=== PATIENT | female | born 1950 | race Caucasian/White ===

== ENCOUNTER 2018-08-07 00:46 | Outpatient (CLI) | payer MEDICARE, BC, SELFPAY ==
--- NOTE | 2018-08-07 15:00 | DI.DEXA_ITS ---
SYMPTOM/DIAGNOSIS: EARLY MENOPAUSE, E28.319, [facility] 'DEXA SCAN: Routine examination. No priors for comparison. Evaluation of the lateral spine shows no compression deformities. Evaluation of the lumbar spine shows a total T score of 0.7 and a Z score of 2.5. Evaluation of the left hip shows a total T score of 0.7 and a Z score of 2. These are within normal limits. No evidence of osteoporosis is seen. IMPRESSION: No evidence of osteoporosis.
--- NOTE | 2018-08-07 15:35 | DI.MAMMO_ITS ---
SYMPTOM/DIAGNOSIS: SCREENING, [facility], Z00.00 MAMMOGRAMS: Mammograms were interpreted according to the usual protocol including computer analysis with CAD system, tomosynthesis and C view imaging. Comparison is made with prior examinations. Breast density, Category B. No suspicious microcalcifications are seen. No suspicious masses are seen in the left breast. There is an ovoid asymmetric density which has shown some interval increase in size in the retroareolar region of the right breast, appreciated on the mediolateral oblique view. Spot compression view and ultrasound is requested for further evaluation. IMPRESSION: Additional views of the right breast as described above. Category 0. MQSA ASSESSMENT OF FINDINGS: Incomplete: Needs additional imaging evaluation. Category 0. Patient will receive a letter notifying them of these results. BI-RADS category B. There are scattered areas of fibroglandular density.
== END 2018-08-07 01:06 ==
PROVIDERS: PCP Family Medicine; Visit Provider Family Medicine
DX: Z12.31 Encounter for screening mammogram for malignant neoplasm of breast (principal); E28.319 Asymptomatic premature menopause; R92.8 Other abnormal and inconclusive findings on diagnostic imaging of breast; Z13.820 Encounter for screening for osteoporosis
CPT/HCPCS: 77063; 77067; 77080

== ENCOUNTER 2018-08-15 00:41 | Outpatient (CLI) | payer MEDICARE, BC, SELFPAY ==
--- NOTE | 2018-08-15 13:45 | DI.COMBO_ITS ---
SYMPTOM/DIAGNOSIS: F/U MAMMO, RT ASYMMETRIC DENSITY ADDITIONAL MAMMOGRAPHIC VIEWS RIGHT BREAST, RIGHT BREAST ULTRASOUND: 08/15/18 Additional mammographic views of the right breast and right breast ultrasound are interpretted in conjunction. These examinations were obtained to evaluate a question of retroareolar focal radio density seen on MLO view of recent mammogram. Additional mammographic views failed to show a definite mass. Breast ultrasound shows no evidence of a mass or cyst. Focal radiodensity persists on the MLO spot compression view. CONCLUSION: No specific evidence of malignancy at this time. Follow up unilateral right breast mammogram requested in 6 months. Category 3. Breast density Category B. MQSA ASSESSMENT OF FINDINGS: Probably benign. Six month follow-up recommended. Category 3. Patient will receive a letter notifying them of these results. BI-RADS category B. There are scattered areas of fibroglandular density.
== END 2018-08-15 01:01 ==
PROVIDERS: PCP Family Medicine; Visit Provider Family Medicine
DX: Z12.31 Encounter for screening mammogram for malignant neoplasm of breast (principal); R92.8 Other abnormal and inconclusive findings on diagnostic imaging of breast
CPT/HCPCS: 76642; 77063; 77067

== ENCOUNTER 2018-09-17 10:06 | Outpatient (REF) | payer MEDICARE, BC, SELFPAY ==
[2018-09-17 12:22] LABS: Anion Gap 9.1 mmol/L (3-11); BUN 10 mg/dL (7-18); CO2 26.9 mmol/L (21.0-32.0); CREATININE 0.83 mg/dL (0.55-1.02); Calcium 9.3 mg/dL (8.5-10.1); Chloride 102 mmol/L (98-107); Glucose 137 mg/dL (70-100); Potassium 4.3 mmol/L (3.5-5.1); Sodium 138 mmol/L (136-145)
== END 2018-09-17 10:26 ==
LOC: NCHCN 10:06
PROVIDERS: PCP Family Medicine; Visit Provider Family Medicine
DX: I10 Essential (primary) hypertension (principal)
CPT/HCPCS: 80048

== ENCOUNTER 2018-10-17 09:14 | Outpatient (REF) | payer MEDICARE, BC, SELFPAY ==
[2018-10-17 12:10] LABS: BUN 8 mg/dL (7-18); CREATININE 0.96 mg/dL (0.55-1.02); Calcium 9.2 mg/dL (8.5-10.1); Chloride 102 mmol/L (98-107); Estimated GFR 58.15 (mL/min/1.73m2); Glucose 202 mg/dL (70-100); Potassium 4.2 mmol/L (3.5-5.1); Sodium 138 mmol/L (136-145)
== END 2018-10-17 09:34 ==
LOC: NCHCN 09:14
PROVIDERS: PCP Family Medicine; Visit Provider Family Medicine
DX: I10 Essential (primary) hypertension (principal)
CPT/HCPCS: 80048

== ENCOUNTER 2019-03-25 10:07 | Outpatient (REF) | payer MEDICARE, BC, SELFPAY ==
[2019-03-25 19:43] LABS: HCT 37.4 % (36.0-46.0); HGB 12.1 g/dL (12.0-15.5); Mean Corp. HGB Concentration 32.4 g/dL (32.0-36.0); Mean Corpuscular Hemoglobin 30.5 pg (27.0-33.0); Mean Corpuscular Volume 94.2 fL (80-95); Mean Platelet Volume 10.4 fL (8.0-11.0); Platelet Count 232 x1000/uL (130-400); RBC 3.97 m/cumm (4.00-5.20); RBC Distribution Width 13.1 % (11.7-14.6); White Blood Cell Count 5.79 k/cumm (4.4-10.8)
[2019-03-25 20:13] LABS: COMMENT (LAB VIEW ONLY) 175.06 mg/dL; Microalb ug/mg Crea 6.6 ug/mg Cr
[2019-03-25 20:34] LABS: Anion Gap 12.9 mmol/L (3-11); BUN 10 mg/dL (7-18); CO2 25.1 mmol/L (21.0-32.0); CREATININE 0.86 mg/dL (0.55-1.02); Chloride 102 mmol/L (98-107); Glucose 157 mg/dL (70-100); Potassium 4.2 mmol/L (3.5-5.1); Sodium 140 mmol/L (136-145); TSH (W/Ref FT4) 1.63 uIU/mL (0.358-3.74)
== END 2019-03-25 10:27 ==
LOC: NCHCN 10:07
PROVIDERS: PCP Family Medicine; Visit Provider Family Medicine
DX: E11.9 Type 2 diabetes mellitus without complications (principal)
CPT/HCPCS: 80048; 85027; 82043; 82570; 84443

== ENCOUNTER 2019-07-22 19:32 | Outpatient (REF) | payer MEDICARE, BC, SELFPAY ==
[2019-07-22 19:16] LABS: Anion Gap 11.1 mmol/L (3-11); BUN 10 mg/dL (7-18); CO2 25.9 mmol/L (21.0-32.0); Calcium 9.6 mg/dL (8.5-10.1); Chloride 99 mmol/L (98-107); Glucose 336 mg/dL (70-100); Potassium 4.1 mmol/L (3.5-5.1); Sodium 136 mmol/L (136-145)
== END 2019-07-22 19:52 ==
LOC: NCHCN 19:32
PROVIDERS: PCP Family Medicine; Visit Provider Family Medicine
DX: I10 Essential (primary) hypertension (principal)
CPT/HCPCS: 80048

== ENCOUNTER 2019-08-09 04:27 | Outpatient (CLI) | payer MEDICARE, BC, SELFPAY ==
--- NOTE | 2019-08-09 09:00 | DI.MAMMO_ITS ---
EXAM: MG MAMMO SCREENING MG MAMMO SCREENING CLINICAL HISTORY: SCREENING, Z12.31 SCREENING, Z12.31 TECHNIQUE: Mammograms were interpreted according to the usual protocol including computer analysis w [employer] CAD system, tomosynthesis and C-view imaging. COMPARISON: 2009 through 2018. FINDINGS: The breasts are composed of mainly fatty density , Breast Density category A. No suspicious masses or suspicious microcalcifications are seen. No skin thickening or abnormal axillary lymph nodes are seen. Noted are scattered nodular densities . There has been no significant change from prior exams. IMPRESSION: BIRADS Category 2, negative mammogram with benign findings. Yearly screening mammography is recommen ded. Breast density category A.
== END 2019-08-09 04:47 ==
PROVIDERS: PCP Family Medicine; Visit Provider Family Medicine
DX: Z12.31 Encounter for screening mammogram for malignant neoplasm of breast (principal)
CPT/HCPCS: 77063; 77067

== ENCOUNTER 2019-10-11 12:58 | Outpatient (REF) | payer MEDICARE, BC, SELFPAY ==
[2019-10-11 13:35] LABS: Anion Gap 11.5 mmol/L (3-11); BUN 20 mg/dL (7-18); CO2 25.5 mmol/L (21.0-32.0); CREATININE 0.92 mg/dL (0.55-1.02); Calcium 9.7 mg/dL (8.5-10.1); Chloride 103 mmol/L (98-107); Glucose 119 mg/dL (74-106); Potassium 3.9 mmol/L (3.5-5.1); Sodium 140 mmol/L (136-145)
[2019-10-11 13:59] LABS: Hemoglobin A1C 6.7 % (3.8-5.6)
== END 2019-10-11 13:18 ==
LOC: NCHCN 12:58
PROVIDERS: PCP Family Medicine; Visit Provider Family Medicine
DX: E11.9 Type 2 diabetes mellitus without complications (principal); I10 Essential (primary) hypertension
CPT/HCPCS: 80048; 83036

== ENCOUNTER 2020-09-16 00:36 | Outpatient (CLI) | payer MEDICARE, BC, SELFPAY ==
--- NOTE | 2020-09-16 | DI.MAMMO_ITS ---
EXAM: MG MAMMO SCREENING CLINICAL HISTORY: SCREENING, Z12.31. TECHNIQUE: Bilateral full field digital CC and MLO mammographic images were obtained with 3D tomosyn thesis and utilizing computer aided detection (CAD). COMPARISON: Prior mammograms dating back to 2011, the most recent being August 2019. Family histo ry; mother diagnosed with postmenopausal breast cancer. FINDINGS: Benign-appearing nodular densities in both breasts remain unchanged. There are no new spiculated masses nor malignant appearing microcalcification groups. There is no si gnificant architectural distortion nor skin thickening-retraction. IMPRESSION: No radiographic evidence of malignancy. Stable benign findings BI-RADS Category 2 - Benign Findings Breast Density - Category A - Almost entirely fatty Breast density Category C or D implies that the patient has dense breast tissue. Dense breast tissue can make it harder to find cancer on a mammogram. Dense breast tissue is also associated with an incr eased risk of breast cancer. This information about the result of the mammogram report was provided to the patient to raise their awareness. Use this report when you speak with the patient about their risks for breast cancer, which includes their family history. At that time, you may recommend additional screening tests (Ultrasoun d or MRI) as these tests may add significant information. A negative radiographic report should not delay biopsy if a dominant or clinically suspicious mass is present. Up to ten percent of cancers are not identified on mammography. A negative report may reinforce clinical impression. Adenosis and dense breasts may obscure an underlying neoplasm. False positive reports average 6 to 10%. Patient will receive a letter notifying them of these results.
== END 2020-09-16 00:56 ==
PROVIDERS: PCP Family Medicine; Visit Provider Family Medicine
DX: Z12.31 Encounter for screening mammogram for malignant neoplasm of breast (principal)
CPT/HCPCS: 77063; 77067

== ENCOUNTER 2020-09-17 20:36 | Outpatient (REF) | payer MEDICARE, BC, SELFPAY ==
[2020-09-17 13:37] LABS: HCT 32.8 % (36.0-46.0); HGB 10.8 g/dL (11.2-15.7); MCH 30.8 pg (27.0-33.0); MCHC 32.9 % (32.0-36.0); MCV 93.4 fL (80-95); MPV 9.6 fL (8.0-11.0); Platelet Count 194 10^3/uL (130-400); RBC 3.51 10^6/uL (3.93-5.22); RDW 12.5 % (11.7-14.6); RDW-SD 42.8 fL
[2020-09-17 14:03] LABS: ALT 50 U/L (14-59); AST 29 U/L (15-37); Albumin 3.7 g/dL (3.4-5.0); Alkaline Phosphatase 120 U/L (46-116); Anion Gap 7.3 mmol/L (3-11); BUN 17 mg/dL (7-18); Bilirubin, Total 0.4 mg/dL (0.2-1.0); CO2 27.7 mmol/L (21.0-32.0); CREATININE 1.02 mg/dL (0.55-1.02); Calcium 9.1 mg/dL (8.5-10.1); Chloride 102 mmol/L (98-107); Estimated GFR 53.89 (mL/min/1.73m2); Glucose 128 mg/dL (74-106); Sodium 137 mmol/L (136-145); TSH (W/Ref FT4) 0.98 uIU/mL (0.36-3.74); Total Protein 6.8 g/dL (6.4-8.2)
[2020-09-17 15:00] LABS: COMMENT (LAB VIEW ONLY) 76.05 mg/dL
[2020-09-18 13:31] LABS: Ferritin 63 ng/mL (8-252)
[2020-09-18 13:49] LABS: Iron 65 ug/dL (50-170); Total Iron Binding Capacity 335 ug/dL (250-450); Transferrin Sat 19 % (15-50)
[2020-09-18 22:29] LABS: Vitamin B12 495 pg/mL (211-911)
[2020-09-21 10:09] LABS: Folate 22.5 ng/mL (See Note)
== END 2020-09-17 20:56 ==
LOC: NCHCN 20:36
PROVIDERS: PCP Family Medicine; Visit Provider Family Medicine
DX: D64.9 Anemia, unspecified (principal); I10 Essential (primary) hypertension; E03.9 Hypothyroidism, unspecified; E78.5 Hyperlipidemia, unspecified
CPT/HCPCS: 80053; 85027; 82043; 82570; 82607; 82728; 82746; 83540; 83550; 84443

== ENCOUNTER 2020-09-24 00:36 | Outpatient (CLI) | payer MEDICARE, BC, SELFPAY ==
--- NOTE | 2020-09-24 | DI.US_ITS ---
APPROVED REPORT EXAM: Comprehensive 2D, Doppler, and color-flow Echocardiogram Patient Location: Out-Patient In Flight Refueling Craftsman: Zhane Esparza RDCS (AE) Indications: Murmur Other Information Study Quality: Adequate Conclusion Left Ventricle : The left ventricle is normal size. The left ventricular systolic function is normal. The left ventricular ejection fraction is within the normal range. There is normal left ventricular wall thickness. There is normal LV segmental wall motion. The left ventricular diastolic function is normal. LVEF is 57%. Right Ventricle : The right ventricle is normal size. The right ventricular systolic function is norm al. Atria : The left atrium size is normal. The right atrium size is normal. Valves: There are no hemodynamically significant valvular lesions. Great Vessels : The aortic root is normal in size. The ascending aorta is dilated (3.6cm). Aortic arc h is normal in caliber. IVC is normal in size and collapses >50% with inspiration. Please see remainder of study for further details. Wall motion Left Ventricle The left ventricle is normal size. The left ventricular systolic function is normal. The left ventric ular ejection fraction is within the normal range. There is normal left ventricular wall thickness. T here is normal LV segmental wall motion. The left ventricular diastolic function is normal. There is no ventricular septal defect visualized. LVEF is 57%. Right Ventricle The right ventricle is normal size. The right ventricular systolic function is normal. Atria The left atrium size is normal. The right atrium size is normal. The interatrial septum is intact wit h no evidence for an atrial septal defect. Aortic Valve The Aortic valve is sclerotic. Aortic valve is trileaflet. No hemodynamically significant valvular ao rtic stenosis. No aortic regurgitation is present. Mitral Valve The mitral valve is normal in structure. No evidence of mitral valve stenosis. Trace mitral regurgita tion. Tricuspid Valve The tricuspid valve is normal in structure. There is no tricuspid valve stenosis. Trace tricuspid reg urgitation. Unable to assess PA pressure. Pulmonic Valve The pulmonary valve is normal in structure. There is no pulmonic valvular stenosis. Trace pulmonic re gurgitation. Great Vessels The aortic root is normal in size. The ascending aorta is dilated (3.6cm). Aortic arch is normal in c aliber. IVC is normal in size and collapses >50% with inspiration. Pericardium There is no pericardial effusion. 2D Dimensions IVSD d PLAX 0.95 cm F: 0.6-1.0 LV Vol A2C d MOD 114.1 mL LVPW d PLAX 0.91 cm F: 0.6 - 1.0 LV Vol A4C d MOD 127.6 mL LVID d PLAX 5.05 cm F: 3.8 - 5.2 LA vol/ BSA A2C s A-L 16.7 mL/m2 LVDs 3.35 cm F: 2.2 - 3.5 LA vol/ BSA A4C s A-L 21.3 mL/m2 Ao Root d 3.05 cm F: 2.7 - 3.3 LA Vol/ BSA Biplane s A-L 19.9 mL/m2 RA Area A4C 16.72 cm2 LA Area A4C s MOD 16.73 cm2 RA Vol/ BSA A4C s A-L 23.0 mL/m2 LA Area A2C s MOD 14.01 cm2 Ao Asc Diam d 3.61 cm F: 2.3 - 3.1 LV EF A4C MOD 56.2 % LV EF Teichholz 61.8 % LV EF A2C MOD 56.8 % LVEF (Coleman's) 56.47 % F: 54 - 74 LV EF Biplane MOD 56.5 % LV Volume 89.58 mL F: 46 - 106 SV 68.08 mL LV Volume Index 43.69 mL/m2 F: 29 - 61 SV Index 33.10 mL/m2 LV Vol Biplane MOD 120.5 mL FS 33.35 % M-Mode TAPSE 2.05 cm (M/F) >1.7 LV Diastology MV E' medial 0.093 (>0.07 m/s) E/A Ratio 1.0 LV E/e MED 8.90 (<14) MV E Vmax 0.83 (0.4-1.3 m/s) MV E' lateral 0.086 (>0.1 m/s) MV A Vmax 0.80 (0.4-1.3 m/s) LV E/e LAT 9.65 (<14) MV E/A Ratio 1.03 MV E/E' medial 8.90 MV E/E' lateral 9.67 Aortic Valve LVOT Area 3.70 cm2 AoV Area Vmax 1.81 cm2 LVOT Vmax 1.02 m/s AoV Area/ BSA (Vmax) 0.88 cm2/m2 LVOT Mean Connor. 0.68 m/s HEBER Mean Connor. 1.68 cm2 LVOT Peak Grad 4.1 mmHg HEBER Mean Connor. Index 0.82 cm2/m2 LVOT Mean Grad 2.2 mmHg LVOT VTI 0.251 m LVOT Diam s 2.15 cm AoV Vmax 2.07 m/s Velocity Ratio 0.49 AoV Mean Connor. 1.51 m/s AoV Peak Grad 17.2 mmHg LVOT SV 92.86 mL AoV Mean Grad 10.0 mmHg AoV VTI 0.450 m AoV Area VTI 2.06 cm2 AoV Area/ BSA (VTI) 1.00 cm/m2 Mitral Valve MV DT 218 (160-240 msec) MV PHT 63 msec MV Area PHT 3.48 cm2 MV VTI 0.258 m MV Area VTI 3.59 (4.0-6.0 cm2) Pulmonary Valve PV Vmax 1.06 (0.5-1.5 m/s) RVOT Peak Gr. 1.71 mmHg PV Peak Grad 4.5 mmHg RVOT Mean Gr. 0.95 mmHg PV Mean Grad 2.2 mmHg RVOT VTI 0.156 m PV VTI 0.211 m RVOT Vmax 0.65 m/s
== END 2020-09-24 00:56 ==
PROVIDERS: PCP Family Medicine; Visit Provider Family Medicine
DX: R01.1 Cardiac murmur, unspecified (principal); I77.810 Thoracic aortic ectasia
CPT/HCPCS: 93306

== ENCOUNTER 2021-01-01 09:25 | Outpatient (REF) | payer MEDICARE, BC, SELFPAY ==
[2021-01-01 15:42] LABS: HCT 35.1 % (36.0-46.0); HGB 11.5 g/dL (11.2-15.7); MCH 30.7 pg (27.0-33.0); MCHC 32.8 % (32.0-36.0); MCV 93.9 fL (80-95); MPV 9.9 fL (8.0-11.0); Platelet Count 225 10^3/uL (130-400); RBC 3.74 10^6/uL (3.93-5.22); RDW 12.8 % (11.7-14.6); WBC 6.49 10^3/uL (4.4-10.8)
[2021-01-01 16:19] LABS: Anion Gap 9.3 mmol/L (3-11); BUN 15 mg/dL (7-18); CO2 26.7 mmol/L (21.0-32.0); CREATININE 1.2 mg/dL (0.55-1.02); Calcium 9.2 mg/dL (8.5-10.1); Chloride 103 mmol/L (98-107); Estimated GFR 44.54 (mL/min/1.73m2); Ferritin 73 ng/mL (8-252); Glucose 193 mg/dL (74-106); Potassium 3.9 mmol/L (3.5-5.1); Sodium 139 mmol/L (136-145); Vitamin B12 493 pg/mL (193-986)
[2021-01-05 09:41] LABS: Methylmalonic Acid 0.17 nmol/mL (<=0.40)
== END 2021-01-01 09:26 | disposition home or self-care (01) ==
LOC: NCHCN 09:25
PROVIDERS: PCP Family Medicine; Visit Provider Family Medicine
DX: D64.9 Anemia, unspecified (principal); Z79.899 Other long term (current) drug therapy; I10 Essential (primary) hypertension
CPT/HCPCS: 80048; 80186; 85027; 82607; 82728

== ENCOUNTER 2021-06-10 19:15 | Outpatient (REF) | payer MEDICARE, BC, SELFPAY ==
[2021-06-10 17:15] LABS: HCT 36.2 % (36.0-46.0); HGB 11.6 g/dL (11.2-15.7); MCV 93.5 fL (80-95); MPV 9.9 fL (8.0-11.0); Platelet Count 228 10^3/uL (130-400); RBC 3.87 10^6/uL (3.93-5.22); RDW 13.2 % (11.7-14.6); RDW-SD 45.3 fL; WBC 5.65 10^3/uL (4.4-10.8)
[2021-06-10 17:28] LABS: Anion Gap 9.5 mmol/L (3-11); BUN 15 mg/dL (7-18); CO2 26.5 mmol/L (21.0-32.0); CREATININE 1.2 mg/dL (0.55-1.02); Calcium 9.5 mg/dL (8.5-10.1); Chloride 100 mmol/L (98-107); Estimated GFR 44.54 (mL/min/1.73m2); Ferritin 85 ng/mL (8-252); Glucose 170 mg/dL (74-106); Potassium 4.2 mmol/L (3.5-5.1); Sodium 136 mmol/L (136-145); TSH (W/Ref FT4) 1.98 uIU/mL (0.36-3.74)
[2021-06-10 17:36] LABS: Hemoglobin A1C 7.7 % (<5.7)
== END 2021-06-10 19:16 | disposition home or self-care (01) ==
LOC: NCHCN 19:15
PROVIDERS: PCP Family Medicine; Visit Provider Family Medicine
DX: E11.9 Type 2 diabetes mellitus without complications (principal); D64.9 Anemia, unspecified; I10 Essential (primary) hypertension; E03.9 Hypothyroidism, unspecified
CPT/HCPCS: 80048; 85027; 82728; 83036; 84443

== ENCOUNTER 2021-08-19 07:13 | Emergency (ER) | payer MEDICARE, BC, SELFPAY ==
--- NOTE | 2021-08-19 07:19 | ED.GENADUL_ITS ---
Discharge Plan Disposition Patient Disposition: HOME Condition: Good Discharge Details Clinical Impression: Acute UTI Primary Care Provider: Soraida Spencer ED Provider: Scottie Ozuna Home Meds and New Rx's Prescriptions: New cephalexin 500 mg capsule 500 mg PO QID 7 Days Qty: 28 RF: 0 Continued aspirin 81 MG tablet,chewable 81 mg PO DAILY RF: 0 levothyroxine [Tirosint] 25 MCG capsule 88 mcg PO DAILY RF: 0 acetaminophen [Tylenol] 325 MG tablet 325 mg PO PRN PRNRF: 0 atorvastatin 40 mg tablet 40 mg PO DAILY RF: 0 chlorthalidone 25 mg tablet 50 mg PO DAILY RF: 0 losartan 100 mg tablet 100 mg PO DAILY RF: 0 metformin 500 mg tablet extended release 24 hr 1,000 mg PO BID RF: 0 omega 2-wqf-wbk-fish oil [Fish Oil] 300-1,000 mg Capsule,Delayed Release(Dr/Ec) 1 cap PO DAILY RF: 0 Jardiance 10 mg tablet 10 mg PO DAILY RF: 0 ibuprofen 400 MG tablet 400 mg PO PRN PRNRF: 0 Discharge Instructions Instructions: Urinary Tract Infection in Women (ED) Additional Instructions: At this time you have evidence of a urinary tract infection. Please take the antibiotic as directed. It has been sent to your pharmacy on file. Please take cranberry concentrate or the cranberry pill supplement that we discussed. If you notice any worsening of your symptoms, or any new symptoms such as vomiting, diarrhea, fever, chills, shortness of breath, chest pain, numbness, weakness, or fainting , please return immediately to the emergency department for reevaluation. Please follow up with your primary care provider as soon as possible for reassessment and reevaluation. As always, it was a pleasure participating in your medical care today. Referrals: Soraida Spencer MD [Primary Care Provider] - Medical Decision Making 70-year-old female with a past medical history of thyroid disease, high cholesterol, diabetes, presents today for urinary frequency and burning for the last week, worsened over the last 24 hours. She denies any fever or chills. She denies any significant abdominal pain, but does admit to some mild groin cramping. She denies any history of kidney stones. Patient does admit to having her Covid booster 1.5 weeks ago and this did cause some diarrhea, myalgias, and other pain but has since resolved. Patient denies any other complaints at this time. She has had a urinary tract infection in the past which felt similar to this. No other modifying factors. She has not been taking any cranberry concentrate. Past surgical history is positive for appende ctomy Physical exam demonstrates no abdominal tenderness, no flank or CVA tenderness. No fever. Symptoms are consistent with mild UTI. Will get urinalysis for further assessment. No indication for CT imaging at this time or blood work. 8:16 AM Urinalysis evidence of UTI. Will give Keflex for treatment. Discussed red flags which to return. No evidence of pyelonephritis. I have extensively reviewed the treatment plan and discharge instructions with the patient. I have addressed all patient concerns at this time. The patient was made aware of what symptoms to monitor for that would warrant a return to the emergency department. Discussed the plan with the patient, they demonstrate verbal understanding and agreement with our assessment and plan at this time. The documentation in this chart was dictated using [employer] dictation software. Please excuse any dictation errors. HPI General Date/Time Provider Initiated Documentation: 08/19/21 07:15 . HPI Narrative: 70-year-old female with a past medical history of thyroid disease, high cholesterol, diabetes, presents today for urinary frequency and burning for the last week, worsened over the last 24 hours. She denies any fever or chills. She denies any significant abdominal pain, but does admit to some mild groin cramping. She denies any history of kidney stones. Patient does admit to having her Covid booster 1.5 weeks ago and this did cause some diarrhea, myalgias, and other pain but has since resolved. Patient denies any other complaints at this time. She has had a urinary tract infection in the past which felt similar to this. No other modifying factors. She has not been taking any cranberry concentrate. Related Data Home Medications Medication Instructions Recorded Confirmed levothyroxine [Tirosint] 88 mcg PO DAILY 03/05/13 08/19/21 ibuprofen 400 mg PO PRN PRN 10/31/16 08/19/21 acetaminophen [Tylenol] 325 mg PO PRN PRN 11/03/16 08/19/21 aspirin 81 mg PO DAILY tab-cap 03/13/17 08/19/21 Jardiance 10 mg PO DAILY 08/19/21 08/19/21 atorvastatin 40 mg PO DAILY 08/19/21 08/19/21 cephalexin 500 mg PO QID 7 Days #28 cap 08/19/21 chlorthalidone 50 mg PO DAILY 08/19/21 08/19/21 losartan 100 mg PO DAILY 08/19/21 08/19/21 metformin 1,000 mg PO BID 08/19/21 08/19/21 omega 0-jkv-zjl-fish oil [Fish Oil] 1 cap PO DAILY 08/19/21 08/19/21 Previous Rx's Medication Instructions Recorded cephalexin 500 mg PO QID 7 Days #28 cap 08/19/21 Allergies Allergy/AdvReac Type Severity Reaction Status Date / Time citalopram AdvReac Mild ankles Unverified 08/19/21 07:31 swelled Review of Systems All systems reviewed & are unremarkable except as noted in HPI and below PFSH Active Problem List Appendicitis (Active 03/05/13) Carpal tunnel syndrome on both sides (Acute) Medical History Depression Hypothyroid Surgical History Appendectomy Colonoscopy - IV Sedation (04/05/17) Social History Smoking/Tobacco Use Status: Former Tobacco Use Smoking risk assessment performed?: Yes Drug use: Never Do you feel safe in your relationship?: Yes Exam Narrative Exam Narrative: 1.Const: Well-nourished, Well-developed, appearing stated age 2.Eyes: PERRL, no conjunctival injection, and symmetrical lids. 3.ENT: Atraumatic external nose and ears. Moist MM. Neck: Symmetric, trachea midline, No thyromegaly. 4.CVS: +S1/S2, No murmurs or gallops. Peripheral pulses 2+ and equal in all extremities. Brisk capillary refill in all extremities. 5.RESP: Unlabored respiratory effort. Clear to auscultation bilaterally. No wheezes rales or rhonchi 6.GI: Soft, Nontender/Nondistended, No hepatosplenomegaly. No guarding or rebound. No flank or CVA tenderness. No pain at McBurney's point. Negative Evans sign. 7.MSK: Normocephalic/Atraumatic, Extremities w/o deformity or ttp No cyanosis or clubbing, Normal movement of all extremities 8.Skin: Warm, Dry. No rashes or lesions. 9.Neuro: service delivery management consultant II-XII grossly intact. Sensation grossly intact, no focal neurologic deficits. 10.Psych: (AAO) x3. Appropriate mood and affect
[2021-08-19 07:26] VITALS: BP 154/72; PULSE 100; RESP 16; TEMP 36.3; O2SAT 100
[2021-08-19 08:04] LABS: Bilirubin Negative (Negative); Blood Large (Negative); Clarity Cloudy (Clear); Glucose Negative (Negative); Ketones Negative (Negative); Leukocyte Esterase Large (Negative); Nitrite Negative (Negative); Specific Gravity 1.025 (1.005-1.025); Urobilinogen 0.2 EU/dL (Up TO 0.2)
[2021-08-19 08:10] LABS: Bacteria Few HPF (Negative); C & S Indicated? Yes; Casts 0-2 Hyaline LPF (Negative); Crystals Negative HPF (Negative); Epithelial Cells Few HPF (Negative); Mucus Negative (Negative); RBC >50 HPF (0-2); WBC >50 HPF (0-5)
[2021-08-19] MEDS: Cephalexin 500 MG CAP PO (08:22)
== END 2021-08-19 08:25 | disposition home or self-care (01) ==
PROVIDERS: Emergency Provider Student in an Organized Health Care Education/Training Program; PCP Family Medicine
DX: N39.0 Urinary tract infection, site not specified (principal)
CPT/HCPCS: 87077; 99283; 81003; 81015; 87086; 87186

== ENCOUNTER 2021-08-25 02:00 | Outpatient (CLI) | payer MEDICARE, BC, SELFPAY ==
--- NOTE | 2021-08-25 09:15 | DI.US_ITS ---
Exam(s) US RENAL EXAM: US RENAL CLINICAL HISTORY: CHRONIC KIDNEY DISEASE N18.31 TECHNIQUE: Ultrasound performed using standard protocol. COMPARISON: US US ECHOCARDIOGRAM from 09/24/2020 FINDINGS: Renal ultrasound was performed according to usual protocol. There is no evidence of hydronephrosis o r nephrolithiasis. There is a simple cyst of the upper pole of the left kidney measuring 28 millimet ers in diameter. No other mass identified. The renal cortex appears well preserved bilaterally. Urinary bladder is unremarkable in appearance with pre and post void volume measurements 82 cc and 0 cc respectively. Ureteral jets were nonvisualized. IMPRESSION: Negative renal ultrasound DATA REPOSITORY:
== END 2021-08-25 02:20 ==
PROVIDERS: PCP Family Medicine; Visit Provider Family Medicine
DX: N18.31 Chronic kidney disease, stage 3a (principal)
CPT/HCPCS: 76770

== ENCOUNTER 2021-09-17 02:07 | Outpatient (CLI) | payer MEDICARE, BC, SELFPAY ==
--- NOTE | 2021-09-17 09:18 | DI.MAMMO_ITS ---
Exam(s) MAMMO SCREENING EXAM: MAMMO SCREENING CLINICAL HISTORY: SCREENING, Z12.31 TECHNIQUE: Bilateral full field digital CC and MLO mammographic images were obtained with 3D tomosyn thesis and utilizing computer aided detection (CAD). COMPARISON: Available for comparison. FINDINGS: Masses/Architectural Distortion: Stable bilateral breast nodules. No suspicious nodules areas of arc hitectural distortion. Microcalcifications: No suspicious pleomorphic-type are seen. Skin Thickening/Nipple Retraction: None. IMPRESSION: 1. No significant interval change with no specific features of malignancy noted. 2. Unless there is more urgent need, screening mammography is recommended, as per [employer] guidelines. BI-RADS Category 2 - Benign Findings Breast Density - Category A - Almost entirely fatty Breast density category C or D implies that the patient has dense breast tissue. Dense breast tissue is very common and is not abnormal but dense breast tissue can make it harder to find cancer on a ma mmogram. Also, dense breast tissue may increase their breast cancer risk. This information about the result of the mammogram report was provided to the patient to raise their awareness. Use this report when you speak with the patient about their risks for breast cancer, which includes their family hist ory. At that time, you may recommend for more screening tests (Ultrasound or MRI) as they might be us eful based on their risk. A negative radiographic report should not delay biopsy if a dominant or clinically suspicious mass is present. Up to ten percent of cancers are not identified on mammography. A negative report may reinforce clinical impression. Adenosis and dense breasts may obscure an underlying neoplasm. False positive reports average 6 to 10%. Patient will receive a letter notifying them of these results.
== END 2021-09-17 02:27 ==
PROVIDERS: PCP Family Medicine; Visit Provider Family Medicine
DX: Z12.31 Encounter for screening mammogram for malignant neoplasm of breast (principal)
CPT/HCPCS: 77063; 77067

== ENCOUNTER 2022-02-25 19:13 | Outpatient (REF) | payer MEDICARE, BC, SELFPAY ==
[2022-02-25 15:35] LABS: HCT 34.2 % (36.0-46.0); HGB 11.4 g/dL (11.2-15.7); MCH 31.4 pg (27.0-33.0); MCHC 33.3 % (32.0-36.0); MCV 94 fL (80-95); MPV 9.3 fL (8.0-11.0); Platelet Count 257 10^3/uL (130-400); RBC 3.63 10^6/uL (3.93-5.22); RDW 12.5 % (11.7-14.6); RDW-SD 43.3 fL; WBC 5.63 10^3/uL (4.4-10.8)
[2022-02-25 15:50] LABS: Hemoglobin A1C 5.6 % (<5.7)
[2022-02-25 15:52] LABS: Iron 85 ug/dL (50-170); Total Iron Binding Capacity 343 ug/dL (250-450); Transferrin Sat 25 % (15-50)
[2022-02-25 16:09] LABS: Anion Gap 8.4 mmol/L (3-11); BUN 19 mg/dL (7-18); CO2 27.6 mmol/L (21.0-32.0); CREATININE 1.1 mg/dL (0.55-1.02); Calcium 9.5 mg/dL (8.5-10.1); Calculated LDL 67 mg/dL (<100); Chloride 103 mmol/L (98-107); Cholesterol 157 mg/dL (<200); Ferritin 53 ng/mL (8-252); Glucose 128 mg/dL (74-106); HDL Cholesterol 59 mg/dL (40-60); Potassium 4.5 mmol/L (3.5-5.1); Sodium 139 mmol/L (136-145); TSH (W/Ref FT4) 0.74 uIU/mL (0.36-3.74); Triglyceride 158 mg/dL (<150)
[2022-02-25 16:30] LABS: COMMENT (LAB VIEW ONLY) 37.28 mg/dL
[2022-02-28 05:06] LABS: Vitamin D 25 Total 16.4 ng/mL (30-100)
[2022-02-28 09:59] LABS: Parathyroid Hormone,Intact 55 pg/mL (19-88)
== END 2022-02-25 19:14 | disposition home or self-care (01) ==
LOC: NCHCN 19:13
PROVIDERS: PCP Family Medicine; Visit Provider Family Medicine
DX: E11.9 Type 2 diabetes mellitus without complications (principal); N18.31 Chronic kidney disease, stage 3a; D64.9 Anemia, unspecified; E78.5 Hyperlipidemia, unspecified; E03.9 Hypothyroidism, unspecified; E55.9 Vitamin D deficiency, unspecified
CPT/HCPCS: 80048; 80061; 82306; 85027; 82043; 82570; 82728; 83036; 83540; 83550; 83970; 84443

== ENCOUNTER 2022-07-04 14:13 | Outpatient (REF) | payer MEDICARE, BC, SELFPAY ==
[2022-07-04 16:40] LABS: Vitamin D 25 Total 48.6 ng/mL (30-100)
== END 2022-07-04 14:14 | disposition home or self-care (01) ==
LOC: NCHCN 14:13
PROVIDERS: PCP Family Medicine; Visit Provider Family Medicine
DX: E55.9 Vitamin D deficiency, unspecified (principal)
CPT/HCPCS: 82306

== ENCOUNTER 2022-09-07 15:05 | Outpatient (REF) | payer MEDICARE, BC, SELFPAY | END 2022-09-07 15:06 | disposition home or self-care (01) | LOC: NCHCN 15:05 | PROVIDERS: PCP Family Medicine; Visit Provider Family Medicine | DX: E11.9 Type 2 diabetes mellitus without complications (principal) | CPT/HCPCS: 82043; 82570 ==

== ENCOUNTER 2022-10-18 02:20 | Outpatient (CLI) | payer MEDICARE, BC, SELFPAY ==
--- NOTE | 2022-10-18 08:25 | DI.MAMMO_ITS ---
Exam(s) MAMMO SCREENING EXAM: MAMMO SCREENING CLINICAL HISTORY: SCREENING MAMMO FOR BREAST CANCER Z12.31. TECHNIQUE: Bilateral full field digital CC and MLO mammographic images were obtained with 3D tomosyn thesis and utilizing computer aided detection (CAD). COMPARISON: Prior mammograms were reviewed. FINDINGS: There has been no significant change in the appearance and distribution of the fibroglandular tissue. Multiple small benign-appearing nodular densities in both breasts are unchanged. There are no new spiculated masses nor malignant appearing microcalcification groups. There is no significant architectural distortion nor skin thickening-retraction. IMPRESSION: No radiographic evidence of malignancy. Stable benign-appearing findings. BI-RADS Category 2 - Benign Findings Breast Density - Category B - Scattered areas of fibroglandular density Breast density Category C or D implies that the patient has dense breast tissue. Dense breast tissue can make it harder to find cancer on a mammogram. Dense breast tissue is also associated with an incr eased risk of breast cancer. This information about the result of the mammogram report was provided to the patient to raise their awareness. Use this report when you speak with the patient about their risks for breast cancer, which includes their family history. At that time, you may recommend additional screening tests (Ultrasoun d or MRI) as these tests may add significant information. A negative radiographic report should not delay biopsy if a dominant or clinically suspicious mass is present. Up to ten percent of cancers are not identified on mammography. A negative report may reinforce clinical impression. Adenosis and dense breasts may obscure an underlying neoplasm. False positive reports average 6 to 10%. Patient will receive a letter notifying them of these results.
== END 2022-10-18 02:40 ==
LOC: DI 02:23
PROVIDERS: PCP Family Medicine; Visit Provider Family Medicine
DX: Z12.31 Encounter for screening mammogram for malignant neoplasm of breast (principal); R92.8 Other abnormal and inconclusive findings on diagnostic imaging of breast
CPT/HCPCS: 77063; 77067

== ENCOUNTER 2023-01-13 13:38 | Outpatient (REF) | payer MEDICARE, BC, SELFPAY ==
[2023-01-13 19:09] LABS: HCT 34.3 % (36.0-46.0); HGB 11.4 g/dL (11.2-15.7); MCH 30.6 pg (27.0-33.0); MCHC 33.2 % (32.0-36.0); MCV 92 fL (80-95); MPV 9.1 fL (8.0-11.0); Platelet Count 229 10^3/uL (130-400); RBC 3.72 10^6/uL (3.93-5.22); RDW 13.2 % (11.7-14.6); RDW-SD 44.6 fL; WBC 5.16 10^3/uL (4.4-10.8)
[2023-01-13 19:30] LABS: Anion Gap 8.3 mmol/L (3-11); BUN 13 mg/dL (7-18); CO2 26.7 mmol/L (21.0-32.0); CREATININE 1.1 mg/dL (0.55-1.02); Calcium 9.7 mg/dL (8.5-10.1); Chloride 105 mmol/L (98-107); Estimated GFR 53.72 (mL/min/1.73m2); Glucose 127 mg/dL (74-106); Potassium 4.5 mmol/L (3.5-5.1); Sodium 140 mmol/L (136-145); TSH (W/Ref FT4) 1.05 uIU/mL (0.36-3.74)
[2023-01-13 19:44] LABS: Vitamin D 25 Total 53.6 ng/mL (30-100)
== END 2023-01-13 13:39 | disposition home or self-care (01) ==
LOC: NCHCN 13:38
PROVIDERS: PCP Family Medicine; Visit Provider Family Medicine
DX: E11.9 Type 2 diabetes mellitus without complications (principal); N18.31 Chronic kidney disease, stage 3a; E55.9 Vitamin D deficiency, unspecified
CPT/HCPCS: 80048; 82306; 85027; 84443

== ENCOUNTER 2023-09-14 05:07 | Emergency (ER) | payer MEDICARE, BC, SELFPAY ==
[2023-09-14 10:39] LABS: Bilirubin Negative (Negative); Blood Large (Negative); Clarity Cloudy (Clear); Glucose Negative (Negative); Ketones Negative (Negative); Leukocyte Esterase Moderate (Negative); Nitrite Negative (Negative); Urobilinogen 0.2 mg/dL (Up to 0.2)
[2023-09-14 10:41] LABS: C & S Indicated? Yes; WBC >50 HPF (0-5)
== END 2023-09-14 05:08 | disposition home or self-care (01) ==
LOC: ER 09:32
PROVIDERS: Emergency Provider Student in an Organized Health Care Education/Training Program; PCP Family Medicine
DX: E11.9 Type 2 diabetes mellitus without complications; N39.0 Urinary tract infection, site not specified; E03.9 Hypothyroidism, unspecified; E78.00 Pure hypercholesterolemia, unspecified; Z87.440 Personal history of urinary (tract) infections; Z79.82 Long term (current) use of aspirin; Z79.899 Other long term (current) drug therapy; Z79.84 Long term (current) use of oral hypoglycemic drugs; F32.A Depression, unspecified
CPT/HCPCS: 87077; 99283; 81003; 81015; 87086; 87186; 99284

== ENCOUNTER 2023-10-27 19:32 | Outpatient (REF) | payer MEDICARE, BC, SELFPAY ==
[2023-10-27 20:04] LABS: COMMENT (LAB VIEW ONLY) 108.54 mg/dL; Microalb ug/mg Crea 4.5 ug/mg Cr
== END 2023-10-27 19:33 | disposition home or self-care (01) ==
LOC: NCHCN 19:32
PROVIDERS: PCP Family Medicine; Visit Provider Family Medicine
DX: E11.9 Type 2 diabetes mellitus without complications (principal)
CPT/HCPCS: 82043; 82570

== ENCOUNTER 2024-02-02 15:09 | Outpatient (REF) | payer MEDICARE, BC, SELFPAY ==
[2024-02-02 15:03] LABS: HCT 33.5 % (36.0-46.0); HGB 10.8 g/dL (11.2-15.7); MCH 30.4 pg (27.0-33.0); MCHC 32.2 % (32.0-36.0); MCV 94 fL (80-95); MPV 9.4 fL (8.0-11.0); Platelet Count 218 10^3/uL (130-400); RBC 3.55 10^6/uL (3.93-5.22); RDW 12.7 % (11.7-14.6); RDW-SD 44.4 fL; WBC 5.39 10^3/uL (4.4-10.8)
[2024-02-02 15:33] LABS: ALT 33 U/L (14-59); AST 21 U/L (15-37); Albumin 3.8 g/dL (3.4-5.0); Alkaline Phosphatase 102 U/L (46-116); Anion Gap 11.9 mmol/L (3-11); BUN 11 mg/dL (7-18); Bilirubin, Total 0.4 mg/dL (0.2-1.0); CO2 26.1 mmol/L (21.0-32.0); Calcium 9.8 mg/dL (8.5-10.1); Chloride 101 mmol/L (98-107); Estimated GFR 59.86 (mL/min/1.73m2); Ferritin 53 ng/mL (8-252); Glucose 110 mg/dL (74-106); Potassium 4.1 mmol/L (3.5-5.1); Sodium 139 mmol/L (136-145); TSH (W/Ref FT4) 0.92 uIU/mL (0.36-3.74); Total Protein 6.6 g/dL (6.4-8.2)
[2024-02-02 15:46] LABS: Iron 55 ug/dL (50-170); Total Iron Binding Capacity 316 ug/dL (250-450); Transferrin Sat 17 % (15-50)
[2024-02-02 16:09] LABS: Vitamin D 25 Total 35.2 ng/mL (30-100)
== END 2024-02-02 15:10 | disposition home or self-care (01) ==
LOC: NCHCN 15:09
PROVIDERS: PCP Family Medicine; Visit Provider Family Medicine
DX: D64.9 Anemia, unspecified (principal); E03.9 Hypothyroidism, unspecified; E55.9 Vitamin D deficiency, unspecified
CPT/HCPCS: 80053; 82306; 85027; 82728; 83540; 83550; 84443

== ENCOUNTER → 2024-02-14 04:10 | Outpatient (CLI) | payer MEDICARE, BC, SELFPAY ==
--- NOTE | 2024-02-14 | DI.MAMMO_ITS ---
Exam(s) MAMMO SCREENING EXAM: MAMMO SCREENING CLINICAL HISTORY: Z12.31 Screening TECHNIQUE: Bilateral full field digital CC and MLO mammographic images were obtained with 3D tomosyn thesis and utilizing computer aided detection (CAD). COMPARISON: Available for comparison. FINDINGS: Masses/Architectural Distortion: There is a 7 mm nodule in the posterior upper left breast on the MLO view 10 cm from the nipple not present on the prior examination. Microcalcifications: No suspicious pleomorphic-type are seen. Skin Thickening/Nipple Retraction: None. IMPRESSION: 1. New 7 mm left breast nodule. 2. Spot compression views requested for further evaluation. Ultrasound may be indicated at that time . BI-RADS Category 0 - Assessment Incomplete: Need additional imaging evaluation Breast Density - Category B - Scattered areas of fibroglandular density Breast density category C or D implies that the patient has dense breast tissue. Dense breast tissue is very common and is not abnormal but dense breast tissue can make it harder to find cancer on a ma mmogram. Also, dense breast tissue may increase their breast cancer risk. This information about the result of the mammogram report was provided to the patient to raise their awareness. Use this report when you speak with the patient about their risks for breast cancer, which includes their family hist ory. At that time, you may recommend for more screening tests (Ultrasound or MRI) as they might be us eful based on their risk. A negative radiographic report should not delay biopsy if a dominant or clinically suspicious mass is present. Up to ten percent of cancers are not identified on mammography. A negative report may reinforce clinical impression. Adenosis and dense breasts may obscure an underlying neoplasm. False positive reports average 6 to 10%. Patient will receive a letter notifying them of these results.
== END ==
PROVIDERS: PCP Family Medicine; Visit Provider Family Medicine
DX: Z12.31 Encounter for screening mammogram for malignant neoplasm of breast (principal); N63.20 Unspecified lump in the left breast, unspecified quadrant
CPT/HCPCS: 77063; 77067

== ENCOUNTER → 2024-02-16 01:22 | Outpatient (CLI) | payer MEDICARE, BC, SELFPAY ==
--- NOTE | 2024-02-16 | DI.MAMMO_ITS ---
Exam(s) MAMMO SCREEN CALL BACK UNI EXAM: MAMMO SCREEN CALL BACK UNI CLINICAL HISTORY: F/U MAMMO, R92.8,NEW 7 MM LT BREAST NODULE. TECHNIQUE: Craniocaudal and mediolateral oblique Full Field Digital Mammography views of the left br east with Computer Aided Diagnosis. COMPARISON: Comparison is made with prior examinations. FINDINGS: Mammography/Tomosynthesis: Masses/Architectural Distortion: The area of concern in the posterior left breast does not persist on the additional views. There are stable nodule seen in the breast. Microcalcifictions: No suspicious pleomorphic-type are seen. Skin Thickening/Nipple Retraction: None. IMPRESSION: 1. No evidence of malignancy is noted. 2. Unless there is more urgent need, follow-up screening mammography is recommended, as per [employer] [place] [employer] guidelines. 3. The findings were discussed with the patient on the date of the examination. BI-RADS Category 2 - Benign Findings Breast Density - Category B - Scattered areas of fibroglandular density Breast density Category C or D implies that the patient has dense breast tissue. Dense breast tissue can make it harder to find cancer on a mammogram. Dense breast tissue is also associated with an incr eased risk of breast cancer. This information about the result of the mammogram report was provided to the patient to raise their awareness. Use this report when you speak with the patient about their risks for breast cancer, which includes their family history. At that time, you may recommend additional screening tests (Ultrasoun d or MRI) as these tests may add significant information. A negative radiographic report should not delay biopsy if a dominant or clinically suspicious mass is present. Up to ten percent of cancers are not identified on mammography. A negative report may reinforce clinical impression. Adenosis and dense breasts may obscure an underlying neoplasm. False positive reports average 6 to 10%. Patient will receive a letter notifying them of these results.
== END ==
PROVIDERS: PCP Family Medicine; Visit Provider Family Medicine
DX: R92.8 Other abnormal and inconclusive findings on diagnostic imaging of breast (principal)
CPT/HCPCS: 77063; 77067

== ENCOUNTER 2024-09-04 20:01 | Outpatient (REF) | payer MEDICARE, BC, SELFPAY ==
[2024-09-04 21:05] LABS: COMMENT (LAB VIEW ONLY) 63.93 mg/dL; Microalb ug/mg Crea 3.3 ug/mg Cr
== END 2024-09-04 20:02 | disposition home or self-care (01) ==
LOC: NCHCN 20:01
PROVIDERS: PCP Family Medicine; Visit Provider Family Medicine
DX: E11.9 Type 2 diabetes mellitus without complications (principal)
CPT/HCPCS: 82043; 82570

== ENCOUNTER 2024-09-26 00:13 | Outpatient (CLI) | payer MEDICARE, BC, SELFPAY ==
--- NOTE | 2024-09-26 | DI.DEXA_ITS ---
Exam(s) XR DEXA BONE DENSITY W/WO KAI EXAM: XR DEXA BONE DENSITY W/WO KAI CLINICAL HISTORY: Z78.0 Asymptomatic menopausal state TECHNIQUE: COMPARISON: DX XR DEXA BONE DENSITY W/WO KAI from 08/07/2018 FINDINGS: Lateral Spine Image: Unremarkable. No compression deformities identified. Left hip: Total T-Score: 0.8. This compares to 0.7 on the prior examination. Total Z-Score: 2.4 T- and Z-scores: Within normal limits. Lumbar Spine: Total T-Score: 0.8. This compares to 0.7 on the prior examination. Total Z-Score: 3.1 T- and Z-scores: Within normal limits. IMPRESSION: No evidence of osteoporosis.
== END 2024-09-26 00:33 ==
LOC: DI 00:13
PROVIDERS: PCP Family Medicine; Visit Provider Family Medicine
DX: Z78.0 Asymptomatic menopausal state (principal); Z13.820 Encounter for screening for osteoporosis
CPT/HCPCS: 77080

== ENCOUNTER 2024-12-31 17:00 | Emergency (ER) | payer MEDICARE, BC, SELFPAY ==
[2024-12-31 17:13] VITALS: BP 163/94; PULSE 83; RESP 12; TEMP 36.8; O2SAT 98
--- NOTE | 2024-12-31 17:53 | ED.GENADUL_ITS ---
Discharge Plan Disposition Patient Disposition: Home Discharge Details Clinical Impression: Foreign body (FB) in soft tissue Primary Care Provider: Soraida Spencer ED Provider: Arcenio Tovar Home Meds and New Rx's Prescriptions: New cephalexin 500 mg capsule 500 mg PO QID 4 Days Qty: 16 0RF No Action levothyroxine [Tirosint] 25 MCG capsule 88 mcg PO DAILY acetaminophen [Tylenol] 325 MG tablet 325 mg PO PRN PRN atorvastatin 40 mg tablet 40 mg PO DAILY Patient Comments: TAKE ONE TABLET BY MOUTH EVERY EVENING chlorthalidone 25 mg tablet 50 mg PO DAILY Patient Comments: TAKE TWO TABLETS BY MOUTH EVERY DAY losartan 100 mg tablet 100 mg PO DAILY Patient Comments: TAKE ONE TABLET BY MOUTH EVERY DAY metformin 500 mg tablet extended release 24 hr 1,500 mg PO BID Patient Comments: TAKE TWO TABLETS BY MOUTH TWICE A DAY ibuprofen 400 MG tablet 400 mg PO PRN PRN Discharge Instructions Instructions: Foreign Body in Skin Additional Instructions: Splinter was removed from your foot Please keep clean with soap and water Please apply topical ointment twice daily and take antibiotics to prevent infection. If you develop any redness increased swelling redness or drainage, please present for reevaluation. HPI General Date/Time Provider Initiated Documentation: 12/31/24 17:16 . Limitations to Documentation: no limitations . Information obtained by: patient . HPI Narrative: 74-year-old female with past medical history of diabetes presents for evaluation of a foreign body in her left foot. She reports that last week she was walking on her wood floor when she noted that she got a splinter in her foot. She said that she read on the Internet that these usually work themselves out. She tried to express it out but it still has not come out and it is causing her pain, worse with walking. She denies any redness, fever or chills. She states that she has good sensation in her feet Related Data Home Medications ?Medication ?Instructions ?Recorded ?Confirmed levothyroxine 25 mcg capsule 88 mcg PO DAILY 03/05/13 12/31/24 (Tirosint) ibuprofen 400 mg tablet 400 mg PO PRN PRN 10/31/16 12/31/24 acetaminophen 325 mg tablet 325 mg PO PRN PRN 11/03/16 12/31/24 (Tylenol) atorvastatin 40 mg tablet 40 mg PO DAILY 08/19/21 12/31/24 chlorthalidone 25 mg tablet 50 mg PO DAILY 08/19/21 12/31/24 losartan 100 mg tablet 100 mg PO DAILY 08/19/21 12/31/24 metformin 500 mg tablet,extended 1,500 mg PO BID 08/19/21 12/31/24 release 24 hr cephalexin 500 mg capsule 500 mg PO QID 4 days #16 caps 12/31/24 Previous Rx's ?Medication ?Instructions ?Recorded cephalexin 500 mg capsule 500 mg PO QID 4 days #16 caps 12/31/24 Allergies Allergy/AdvReac Type Severity Reaction Status Date / Time citalopram AdvReac Mild ankles Unverified 12/31/24 17:17 swelled General Stated Complaint: ForeignBody WILLIAM: 4 Exam Narrative Exam Narrative: Review of Systems: All systems reviewed & are unremarkable except as noted in HPI and below Well-developed, no acute distress Unlabored respiratory effort left plantar foot- with small area of firm callus and FB noted, no erythema, warmth or drainage Course Vital Signs Vital signs: Vital Signs Temperature 36.8 C 12/31/24 17:13 Pulse 83 12/31/24 17:13 Respiratory Rate 12 12/31/24 17:13 Blood Pressure 163/94 H 12/31/24 17:13 Pulse Oximetry 98 12/31/24 17:13 Temperature 36.8 C 12/31/24 17:13 Temperature Source Oral 12/31/24 17:13 Pulse 83 12/31/24 17:13 Respiratory Rate 12 12/31/24 17:13 Blood Pressure 163/94 H 12/31/24 17:13 Blood Pressure Position Sitting 12/31/24 17:13 Pulse Oximetry 98 12/31/24 17:13 Oxygen Delivery Method Room Air 12/31/24 17:13 Oxygen Flow Rate 0 12/31/24 17:13 Pain Level 5 12/31/24 17:13 Procedure Foreign Body Removal Location of procedure: Other (left plantar foot: used freezie spray for analgesia, small wooden splinter removed ) Medical Decision Making Emergent evaluation of foreign body. Patient does have diabetes, but no peripheral neuropathy. There are no signs of infection secondary to the foreign body at this time. The small wooden splinter was removed without complication the patient tolerated the procedure well. Given her diabetes and high risk for possible infection, prophylactic topical and oral antibiotics have been provided to the patient. Discussed the importance of wound care and visualization of the wound daily. Return precautions advised. Quality:SDOH Health Related Social Needs: No Data to Display PFSH All Active Problems (Updated 12/31/24 @ 17:49 by Arcenio Tovar MD) Foreign body (FB) in soft tissue (Acute) Acute UTI (Acute) Carpal tunnel syndrome on both sides (Acute) Appendicitis (Active 03/05/13) Laparoscopic appendectomy by Dr. Case Montiel 03/05/2013 Active Problem List Appendicitis (Active 03/05/13) Carpal tunnel syndrome on both sides (Acute) Medical History Depression Hypothyroid Surgical History Appendectomy Colonoscopy - IV Sedation (04/05/17) Social History Smoking/Tobacco Use Status: Former Tobacco Use Smoking risk assessment performed?: Yes Alcohol Intake: current Alcohol Intake frequency: holidays/special occasions only Drug use: Never Substance use type: does not use Do you feel safe at home: Yes Do you feel safe in your relationship?: Yes
[2024-12-31] MEDS: Cephalexin 500 MG CAP, 4 CAPS/BTL PO (18:20)
[2024-12-31] MEDS: Mupirocin 2% Oint. 22 GM TUBE TP (18:20)
[2024-12-31 18:21] VITALS: BP 139/82; PULSE 78; RESP 14; O2SAT 100
== END 2024-12-31 18:21 | disposition home or self-care (01) ==
LOC: ER 18:14
PROVIDERS: Emergency Provider Emergency Medicine; PCP Family Medicine
DX: M79.5 Residual foreign body in soft tissue (principal); Z79.84 Long term (current) use of oral hypoglycemic drugs; Z87.891 Personal history of nicotine dependence
CPT/HCPCS: 99283

== ENCOUNTER 2025-08-05 14:59 | Emergency (ER) | payer MEDICARE, BC, SELFPAY ==
[2025-08-05 15:23] VITALS: BP 118/75; PULSE 80; RESP 18; TEMP 36.5; O2SAT 97
[2025-08-05 15:35] VITALS: BP 118/75; PULSE 80; RESP 14; TEMP 36.5; O2SAT 95
[2025-08-05 16:22] LABS: Glucose Negative (Negative)
--- NOTE | 2025-08-05 16:26 | W.ED.GENAD ---
Discharge Plan Disposition Patient Disposition: Home Condition: Stable Discharge Details Clinical Impression: Acute UTI Primary Care Provider: Soraida Spencer ED Provider: Serina Davidson Home Meds and New Rx's Prescriptions: New cephalexin 500 mg tablet 500 mg PO BID 10 Days Qty: 20 0RF Rx Instructions: Please take 1 tablet by mouth daily for the next 10 days Continued levothyroxine [Tirosint] 25 MCG capsule 88 mcg PO DAILY acetaminophen [Tylenol] 325 MG tablet 325 mg PO PRN PRN atorvastatin 40 mg tablet 40 mg PO DAILY Patient Comments: TAKE ONE TABLET BY MOUTH EVERY EVENING chlorthalidone 25 mg tablet 50 mg PO DAILY Patient Comments: TAKE TWO TABLETS BY MOUTH EVERY DAY losartan 100 mg tablet 100 mg PO DAILY Patient Comments: TAKE ONE TABLET BY MOUTH EVERY DAY metformin 500 mg tablet extended release 24 hr 1,500 mg PO BID Patient Comments: TAKE TWO TABLETS BY MOUTH TWICE A DAY ibuprofen 400 MG tablet 400 mg PO PRN PRN Discharge Instructions Instructions: Urinary Tract Infection, Adult ED Additional Instructions: It does appear that you have a UTI today. You are given the first antibiotic here in the emergency department. Please take the antibiotic with yogurt or a probiotic daily. Please take Tylenol or Ibuprofen with food every 4-6 hours as needed for pain and swelling. Follow up with primary care provider in 3-5 days. Return to ED sooner if any worsening pain, fever, vomiting or concerns. Stand Alone Forms: Portal Information Referrals: Soraida Spencer MD [Primary Care Provider, Medicine] - 1 week Referral Note: ER follow-up, call for appointment Clinical Impression: Acute UTI Discharge Data Discharge Date/Time-TO BE ENTERED AT DEPARTURE: 08/05/25 16:51 HPI General Mode of arrival: ambulatory. Date/Time Provider Initiated Documentation: 08/05/25 15:43. Limitations to Documentation: no limitations. Information obtained by: patient, RN notes reviewed and old records reviewed. HPI Narrative: 74-year-old female presents to the ER with chief complaint of dysuria for the last week. Has been taking cranberry tablets with little to no relief. She is a diabetic and does have a history of occasional urinary tract infections. She denies any vomiting, fever back pain diarrhea or any other associated symptoms. Related Data Home Medications Medication Instructions Recorded Confirmed levothyroxine 25 mcg capsule 88 mcg PO DAILY 03/05/13 08/05/25 (Tirosint) ibuprofen 400 mg tablet 400 mg PO PRN PRN 10/31/16 08/05/25 acetaminophen 325 mg tablet 325 mg PO PRN PRN 11/03/16 08/05/25 (Tylenol) atorvastatin 40 mg tablet 40 mg PO DAILY 08/19/21 08/05/25 chlorthalidone 25 mg tablet 50 mg PO DAILY 08/19/21 08/05/25 losartan 100 mg tablet 100 mg PO DAILY 08/19/21 08/05/25 metformin 500 mg tablet,extended 1,500 mg PO BID 08/19/21 08/05/25 release 24 hr cephalexin 500 mg tablet 500 mg PO BID UTI 10 days #20 tabs 08/05/25 Previous Rx's Medication Instructions Recorded cephalexin 500 mg tablet 500 mg PO BID UTI 10 days #20 tabs 08/05/25 Allergies Allergy/AdvReac Type Severity Reaction Status Date / Time citalopram AdvReac Mild ankles Unverified 12/31/24 17:17 swelled General Stated Complaint: Urinary WILLIAM: 3 Review of Systems All systems reviewed & are unremarkable except as noted in HPI and below Gastrointestinal Gastrointestinal: Denies diarrhea, Denies nausea and Denies vomiting Genitourinary Genitourinary: Reports as per HPI, Reports dysuria and Reports urinary urgency Exam Narrative Exam Narrative: Constitutional: Alert and oriented x3. Appears stated age. Normal body habitus. Head: Normocephalic, no trauma. Chest: RRR, Normal S1, S2, distal pulses intact. Resp: Lungs clear to auscultation bilaterally, no wheezes, rales, or rhonchi. Abdomen: Soft, non-distended, Normoactive bowel sounds all 4 quads. Course Vital Signs Vital signs: Vital Signs Temperature 36.5 C 08/05/25 15:23 Pulse 80 08/05/25 15:23 Respiratory Rate 18 08/05/25 15:23 Blood Pressure 118/75 08/05/25 15:23 Pulse Oximetry 97 08/05/25 15:23 Temperature 36.5 C 08/05/25 15:35 Temperature Source Oral 08/05/25 15:35 Pulse 80 08/05/25 15:35 Respiratory Rate 14 08/05/25 15:35 Blood Pressure 118/75 08/05/25 15:35 Blood Pressure Position Sitting 08/05/25 15:35 Pulse Oximetry 95 08/05/25 15:35 Oxygen Delivery Method Room Air 08/05/25 15:35 Oxygen Flow Rate 0 08/05/25 15:23 Pain Level 7 08/05/25 15:23 Lab/Test Results Lab/Test Results: Laboratory Tests Range/Units 08/05/25 15:26 Urine Color (Yellow) Yellow Urine Clarity (Clear) Clear Urine pH (5-8) 7.5 Ur Specific [place] (1.005-1.025) 1.015 Urine Protein (Neg-Trace) mg/dL Negative Urine Ketones (Negative) mg/dL Negative Urine Blood (Negative) Negative Urine Nitrite (Negative) Positive H Urine Bilirubin (Negative) Negative Urine Urobilinogen (Up to 0.2) mg/dL 0.2 Ur Leukocyte Esterase (Negative) Small H Urine Glucose (Negative) mg/dL Negative Medical Decision Making 74-year-old female presents to the ER with chief complaint of dysuria for the last week. Has been taking cranberry tablets with little to no relief. She is a diabetic and does have a history of occasional urinary tract infections. She denies any vomiting, fever back pain diarrhea or any other associated symptoms. Urinalysis shows positive nitrites small leukocytes, patient given Cipro 500 g twice daily x 10 days. Discharged in hemodynamically stable condition. Lab Data Lab results reviewed: Yes I reviewed the patient's lab results. Labs: 08/05/25 15:26 Urine - Reflex from Ua Urine Culture - Pending Laboratory Tests Range/Units 08/05/25 15:26 Urine Color (Yellow) Yellow Urine Clarity (Clear) Clear Urine pH (5-8) 7.5 Ur Specific [place] (1.005-1.025) 1.015 Urine Protein (Neg-Trace) mg/dL Negative Urine Ketones (Negative) mg/dL Negative Urine Blood (Negative) Negative Urine Nitrite (Negative) Positive H Urine Bilirubin (Negative) Negative Urine Urobilinogen (Up to 0.2) mg/dL 0.2 Ur Leukocyte Esterase (Negative) Small H Urine RBC (0-2) HPF 0-2 Urine WBC (0-5) HPF 20-50 H Ur Epithelial Cells (Negative) HPF Rare Urine Crystals (Negative) HPF Negative Urine Bacteria (Negative) HPF Packed Urine Casts (Negative) LPF Negative Urine Mucus (Negative) Negative Ur Culture Indicated? Yes Urine Glucose (Negative) mg/dL Negative PFSH All Active Problems (Updated 08/05/25 @ 16:30 by Serina Davidson NP) Acute UTI (Acute) Acute UTI (Acute) Carpal tunnel syndrome on both sides (Acute) Appendicitis (Active 03/05/13) Laparoscopic appendectomy by Dr. Case Montiel 03/05/2013 Medical History Depression Hypothyroid Surgical History Colonoscopy - IV Sedation (04/05/17) Appendectomy Social History Smoking/Tobacco Use Status: Former Tobacco Use Smoking risk assessment performed?: Yes Alcohol Intake: current Alcohol Intake frequency: holidays/special occasions only Alcohol type: beer Drug use: Never Substance use type: does not use Do you feel safe at home: Yes Do you feel safe in your relationship?: Yes
[2025-08-05 16:36] LABS: C & S Indicated? Yes; RBC 0-2 HPF (0-2); WBC 20-50 HPF (0-5)
[2025-08-05] MEDS: Cephalexin 500 MG CAP PO (16:48)
== END 2025-08-05 16:51 | disposition home or self-care (01) ==
PROVIDERS: Emergency Provider Registered Nurse Emergency; PCP Family Medicine
DX: N39.0 Urinary tract infection, site not specified (principal)
CPT/HCPCS: 99283 ×2; 87077; 81003; 81015; 87086; 87186

== ENCOUNTER 2025-08-18 11:42 | Outpatient (REF) | payer MEDICARE, BC, SELFPAY ==
[2025-08-18 21:59] LABS: HCT 35.4 % (36.0-46.0); HGB 11.6 g/dL (11.2-15.7); MCH 30.0 pg (27.0-33.0); MCHC 32.8 % (32.0-36.0); MCV 92 fL (80-95); MPV 9.6 fL (8.0-11.0); Platelet Count 250 10^3/uL (130-400); RBC 3.87 10^6/uL (3.93-5.22); RDW 12.9 % (11.7-14.6); RDW-SD 42.8 fL; WBC 5.42 10^3/uL (4.4-10.8)
[2025-08-18 22:15] LABS: Anion Gap 9.5 mmol/L (3-11); BUN 13 mg/dL (9-23); CO2 25.5 mmol/L (20.0-31.0); Calcium 9.7 mg/dL (8.3-10.6); Chloride 101 mmol/L (98-107); Glucose 141 mg/dL (74-106); Potassium 4.1 mmol/L (3.5-5.1); Sodium 136 mmol/L (136-145)
[2025-08-18 22:18] LABS: Ferritin 40 ng/mL (7-271)
[2025-08-18 22:20] LABS: TSH (W/Ref FT4) 0.37 uIU/mL (0.55-4.78); Vitamin B12 425 pg/mL (211-911)
[2025-08-18 22:56] LABS: Folate > 24.0 ng/mL (>5.38)
== END 2025-08-18 11:43 | disposition home or self-care (01) ==
LOC: NCHCN 11:42
PROVIDERS: PCP Family Medicine; Visit Provider Family Medicine
DX: D64.9 Anemia, unspecified (principal); E03.9 Hypothyroidism, unspecified; E11.9 Type 2 diabetes mellitus without complications; I10 Essential (primary) hypertension
CPT/HCPCS: 80048; 80186; 85027; 82043; 82570; 82607; 82728; 82746; 84439; 84443